=== PATIENT | female | born 2000 | race African-American/Black ===

== ENCOUNTER 2022-11-18 11:23 | Emergency (ER) | payer OTHER, SELFPAY ==
[2022-11-18 11:30] VITALS: BP 135/99; PULSE 94; RESP 15; TEMP 36.9; O2SAT 96; BMI 20.9
--- NOTE | 2022-11-18 11:38 | DI.CT.S_ITS ---
PROCEDURE: CT HEAD/BRAIN WO CON INDICATIONS: worsening headaches, 07/05 TECHNIQUE: Noncontrast 4.5 mm thick angled axial sections acquired from the foramen magnum to the vertex, with coronal and sagittal reformats. For radiation dose reduction, the following was used: automated exposure control, adjustment of mA and/or kV according to patient size. COMPARISON: None. FINDINGS: Image quality: Excellent. CSF spaces: Basal cisterns are patent. No extra-axial fluid collections. Ventricles are normal in size and shape. Brain: No midline shift. No intracranial masses or hemorrhage. Poon-white matter interface is normal. Dense calcification can be seen along the falx superiorly, which is not regarded to be pathologic. Skull and face: Calvarium and visualized facial bones are intact, without suspicious lesions. Sinuses: Visualized sinuses and mastoids are clear. 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 IMPRESSION: No acute intracranial hemorrhage is seen. No imaging explanation is found for the patient's presenting history of worsening headaches. No hydrocephalus or brain edema can be seen. Negative for Chiari 1 malformation. Dictated by: Dionicio Jacome M.D. on 11/18/2022 at 10:55 Approved by: Dionicio Jacome M.D. on 11/18/2022 at 10:57
--- NOTE | 2022-11-18 11:47 | ED_ITS ---
HPI - Headache General Chief Complaint: Headache Stated Complaint: Sent by KRISTIE Ash migraine 2 hours Time Seen by Provider: 11/18/22 11:30 Mode of arrival: Ambulatory History of Present Illness HPI Narrative: 22-year-old female nonsmoker with history of headaches presents from the [facility] for evaluation of headache. She has migraine headaches a few times a week and typically takes Motrin for help. She has a consultation for Neurology evaluation upcoming and possible imaging. She presents today with the chief complaint of a frontal headache that started a few hours ago and has gradually worsened. She states her pain is worse with bright lights and loud noise and improves in a dark room. She denies any neck pain, fever or chills. She takes no blood thinners and denies any trauma. She is had no runny nose, sore throat or cough. She denies any blurred vision, trouble speech, dizziness or numbness, tingling or weakness in her extremities. She denies any dietary change or recent medication change. Related Data Allergies Allergy/AdvReac Type Severity Reaction Status Date / Time No Known Drug Allergies Allergy Verified 11/18/22 11:31 Review of Systems Review of Systems Narrative: GENERAL: Denies chills, fatigue, malaise, fever, sweats. HEENT: Denies sinus pain, ear pain, sore throat, difficulty swallowing, dizziness. RESPIRATORY: Denies dyspnea, cough, wheezing, hemoptysis, sputum. CARDIOVASCULAR: Denies chest pain, palpitations, orthopnea, edema, GASTROINTESTINAL: Denies nausea, vomiting, abdominal pain, diarrhea, constipation, melena. : Denies dysuria, frequency, incontinence, hematuria, urinary retention. MUSCULOSKELETAL: denies weakness, joint pain, or bony pain SKIN: Denies rash, skin lesions, or other NEUROLOGIC: See HPI PSYCHIATRIC: No concerning psychosocial issues. 12 point review of systems is negative except for those stated above Patient History Social History Smoking Status: Unknown if ever smoked Smoking Status: Unknown if ever smoked alcohol intake frequency: holidays/special occasions only Substance Use Type: does not use Exam Narrative Exam Narrative: GENERAL: [22] year old patient appears stated age. Well-developed patient, in mild distress. HEAD: Atraumatic. Normocephalic. EYES: Pupils equal round and reactive. Extraocular motions intact. No scleral icterus. No injection or drainage. ENT: Nose without bleeding, purulent drainage. Throat without erythema, tonsillar hypertrophy or exudate. Airway patent. NECK: Trachea midline. Non tender CARDIOVASCULAR: Regular rate and rhythm without murmurs, gallops, or rubs. RESPIRATORY: Clear to auscultation. Breath sounds equal bilaterally. No wheezes, rales, or rhonchi. GASTROINTESTINAL: Abdomen soft, non-tender, nondistended. EXTREMITIES: No edema or joint tenderness. BACK: Nontender without deformity or crepitance. No flank tenderness. NEURO: AOx3. SKIN: No rash or erythema of visible areas NIH Stroke Scale 1a. LOC: Patient is alert and keenly responsive (0) 1b. LOC Questions: Patient answers both LOC questions accurately (0) 1c. LOC Commands: Patient performs both tasks correctly (0) 2. Best Gaze: Normal (0) 3. Visual: No visual loss (0) 4. Facial palsy: Normal symmetrical movements (0) 5. Motor arm: No drift (0) 6. Motor leg: No drift (0) 7. Limb ataxia: Absent (0) 8. Sensory: Normal (0) 9. Best language: No aphasia; normal (0) 10. Dysarthria: Normal (0) 11. Extinction and inattention: No abnormality (0) NIHSS: 0 Initial Vital Signs Initial Vital Signs: Vital Signs Temperature 98.4 F 11/18/22 11:30 Pulse Rate 94 H 11/18/22 11:30 Respiratory Rate 15 11/18/22 11:30 Blood Pressure 135/99 H 11/18/22 11:30 Pulse Oximetry 96 11/18/22 11:30 Oxygen Delivery Method 11/18/22 11:30 Course Orders Ordered: Discontinued Medications Dexamethasone (Dexamethasone 10 Mg/Ml Vial) 10 mg IV NOW ONE Stop: 11/18/22 11:39 Last Admin: 11/18/22 12:10 Dose: 10 mg Documented By: AT Dihydroergotamine Mesylate (Dihydroergotamine 1 Mg/Ml Ampul) 1 mg IV NOW ONE Stop: 11/18/22 12:44 Last Admin: 11/18/22 13:13 Dose: 1 mg Documented By: AT Sodium Chloride (Normal Saline 0.9%) 1,000 mls @ 1,000 mls/hr IV BOLUS ONE Stop: 11/18/22 12:37 Last Infusion: 11/18/22 13:10 Dose: 0 mls/hr Documented By: Admin: 11/18/22 12:08 Dose: 1,000 mls/hr Documented By: AT Ketorolac Tromethamine (Ketorolac 30 Mg/Ml Vial) 30 mg IV NOW ONE Stop: 11/18/22 11:39 Last Admin: 11/18/22 12:09 Dose: 30 mg Documented By: AT Metoclopramide HCl (Metoclopramide 10 Mg/2 Ml Inj) 10 mg IV NOW ONE Stop: 11/18/22 11:39 Last Admin: 11/18/22 12:08 Dose: 10 mg Documented By: AT Vital Signs Vital signs: Vital Signs - 8 hr 11/18/22 11:30 Temperature 98.4 F Pulse Rate 94 H Respiratory Rate 15 Blood Pressure 135/99 H Pulse Oximetry 96 Oxygen Delivery Method Room Air MDM - Headache Imaging Data CT scan - head: Radiologist's Impression: Close Head CT (Signed) Dionicio Jacome - 11/18/22 [place] [address] CT Scan Report Signed Patient: Mayur Elizabeth MR#: [id number] : 2000 Acct:[id number] Age/Sex: 22 / F Date of Service: 11/18/22 Loc: Accession Number: [id number] ?? Procedure: CT head/brain wo con Ordering Provider: Young Calloway D.O. PROCEDURE:? CT HEAD/BRAIN WO CON ? INDICATIONS:? worsening headaches, 07/05 ? TECHNIQUE:? Noncontrast 4.5 mm thick angled axial sections acquired from the foramen magnum to the vertex, with coronal and sagittal reformats.? For radiation dose reduction, the following was used:? automated exposure control, adjustment of mA and/or kV according to patient size.? ? COMPARISON:? None. ? FINDINGS:? Image quality:? Excellent.? ? CSF spaces:? Basal cisterns are patent.? No extra-axial fluid collections.? Ventricles are normal in size and shape.? ? Brain:? No midline shift.? No intracranial masses or hemorrhage.? Poon-white matter interface is normal.? Dense calcification can be seen along the falx superiorly, which is not regarded to be pathologic. ? Skull and face:? Calvarium and visualized facial bones are intact, without suspicious lesions.? ? Sinuses:? Visualized sinuses and mastoids are clear.? 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 ? IMPRESSION:? No acute intracranial hemorrhage is seen.? ? No imaging explanation is found for the patient's presenting history of worsening headaches. ? No hydrocephalus or brain edema can be seen. ? Negative for Chiari 1 malformation.? ? Dictated by: Dionicio Jacome M.D. on 11/18/2022 at 10:55 ? ? Approved by: Dionicio Jacome M.D. on 11/18/2022 at 10:57 ? MDM Narrative Medical decision making narrative: 22-year-old female with history of headaches presents for evaluation of headache Headache considerations include, but not limited to: Subarachnoid hemorrhage, but unlikely as patient denies sudden onset of pain, not worst of life, or neck pain Meningitis considered, but thought unlikely given lack of Brudzinski's, Kernig's sign, altered mental status or fever Giant cell arteritis considered, but thought unlikely given lack of unilateral findings, pain in advent, vision change HTN Emergency considered, but thought unlikely given normal vitals Other serious diagnoses considered unlikely given lack of red flag findings such as sudden onset, increasing frequency, immunocompromise, systemic signs (fever, chills, stiff neck, or rash), focal neurologic findings, trauma, blood thinners, etc Prior Charts reviewed: Labs reviewed and interpreted by myself: Imaging reviewed: Consultations: Patient's symptoms improved over duration of stay with above-stated therapies. Findings and discharge diagnosis discussed with patient/family followed by verbalization of understanding Return precautions discussed with patient/family whom verbalize understanding of diagnosis and plan. Discharge Plan Departure Patient Disposition: Home Clinical Impression: Migraine Instructions: DI for Headache Activity Restrictions/Additional Instructions: *You have been diagnosed with [migraine headache] *What to do: *Please continue to take your regular medications as directed. [ ] New medication prescriptions sent to your pharmacy: [ ] [ ] New medication written as a paper prescription [ x] No new medications given *Please follow up with your primary care provider in 2-3 days, call for an appointment. Let them know you were seen in the Emergency Department and that we ask that you be seen in follow up. We will electronically transmit a record of today's note if your PCP is in our system *If you do not have a primary care provider please contact the [facility] Resource line at [phone]. They will ask some questions about your medical history and help get you set up with a doctor in the community. *Return to Emergency Department if you should have any new, worsening or concerning symptoms, such as [fever greater than 101 F, shaking chills, worsening pain, persistent vomiting or other bothersome symptoms] Referrals: Susanne Trevino [Primary Care Provider] - Stand Alone Forms: Patient Portal/API
[2022-11-18] MEDS: SODIUM CHLORIDE 0.9% 1,000 ML 1000 ML IV (12:08)
[2022-11-18] MEDS: METOCLOPRAMIDE 10 MG/2 ML INJ IV (12:08)
[2022-11-18] MEDS: KETOROLAC 30 MG/ML VIAL IV (12:09)
[2022-11-18] MEDS: DEXAMETHASONE 10 MG/ML VIAL IV (12:10)
[2022-11-18] MEDS: DIHYDROERGOTAMINE 1 MG/ML AMPUL IV (13:13)
[2022-11-18 14:03] VITALS: BP 112/70; PULSE 70; RESP 16; O2SAT 99
--- NOTE | 2022-11-18 14:13 | PC.NURSE ---
Pt reports improvement in symptoms, Dr. Calloway notified.
== END 2022-11-18 14:47 | disposition home or self-care (01) ==
PROVIDERS: Emergency Provider Emergency Medicine
DX: G43.909 Migraine, unspecified, not intractable, without status migrainosus (principal)
CPT/HCPCS: 36415; 70450; 96361; 96374; 96375; 99284; J1100; J1110; J1885; J2765